=== PATIENT | male | born 1970 | race Caucasian/White ===

== ENCOUNTER 2016-03-28 09:31 | Outpatient (CLI) | payer OTHER ==
[2016-03-28] MEDS ORDERED: BARIUM SULFATE 135 ML BOTTLE PO ONE (09:59)
== END 2016-03-28 09:32 | disposition home or self-care (01) ==
DX: R13.10 Dysphagia, unspecified (principal)
CPT/HCPCS: 74230; 92611; A9270

== ENCOUNTER 2016-05-24 06:50 | Outpatient (CLI) | payer OTHER, MEDICAID ==
[2016-05-24] MEDS ORDERED: IOPAMIDOL-300 100 ML VIAL IVP ONE (08:51)
[2016-05-24] MEDS ORDERED: IOPAMIDOL-300 50 ML VIAL PO ONE (08:51)
== END 2016-05-24 06:51 | disposition home or self-care (01) ==
DX: C15.9 Malignant neoplasm of esophagus, unspecified (principal); K76.9 Liver disease, unspecified
CPT/HCPCS: 71260; 74177; Q9967

== ENCOUNTER 2016-06-17 06:06 | Day surgery (SDC) | payer MEDICAID ==
[2016-06-17] MEDS ORDERED: ceFAZolin 2 GM/50 ML 50 ML IV ONE (06:35)
[2016-06-17] MEDS ORDERED: LACTATED RINGERS 1,000 ML IV ONE ×3 (07:00→08:04)
[2016-06-17] MEDS ORDERED: FAMOTIDINE 20 MG/50 ML 50 ML IV ONE (07:20)
[2016-06-17] MEDS ORDERED: ONDANSETRON 4 MG/2 ML VIAL IVP ONE (07:30)
[2016-06-17] MEDS ORDERED: DEXAMETHASONE 4 MG/ML VIAL IVP ONE (07:30)
[2016-06-17] MEDS ORDERED: fentaNYL 100 MCG/2 ML VIAL IVP ONE (07:30)
[2016-06-17] MEDS ORDERED: LIDOCAINE-MPF 2% 5 ML VIAL IM ONE (07:30)
[2016-06-17] MEDS ORDERED: MIDAZOLAM 2 MG/2 ML VIAL IVP ONE (07:30)
[2016-06-17] MEDS ORDERED: PROPOFOL 200 MG/20 ML VIAL IVP ONE (07:30)
[2016-06-17] MEDS ORDERED: BUPIVACAINE 0.5% PF 30 ML VIAL INFIL ONE (08:30)
== END 2016-06-17 06:07 | disposition home or self-care (01) ==
PROC: 0JH63XZ Insertion of Tunneled Vascular Access Device into Chest Subcutaneous Tissue and Fascia, Percutaneous Approach (ICD-10-PCS; principal; 2016-06-17 07:30)
DX: C15.5 Malignant neoplasm of lower third of esophagus (principal); Z87.891 Personal history of nicotine dependence; Z88.0 Allergy status to penicillin; Z83.3 Family history of diabetes mellitus
CPT/HCPCS: 36561; 71010; C1788; J0690; J7120

== ENCOUNTER 2016-06-24 10:44 | Outpatient (CLI) | payer MEDICAID ==
--- NOTE | 2016-06-27 11:55 | CONSULTATION NOTE ---
DATE OF CONSULTATION: 06/24/2016 00:00:00 REQUESTING PROVIDER: Dr. Valencia TIME OF VISIT: 1100 to 1215. Thank you, Dr. Valencia, for asking the palliative care consult service to be involved in the care of y our patient. I am asked to provide support regarding symptom management, counseling for her goals of care, and coordination of care. BRIEF HISTORY OF PRESENT ILLNESS: This is a 46-year-old gentleman who has had progressive difficulty with swallowing in the fall, and most notable at the beginning of the year with a progressing dramati c weight loss. He was 250, currently is about 180. He has had a series of scans and now diagnosed marylou vazquez esophageal cancer. Was found to have a mass at the GE junction. 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 He had a PET CT that showed uptake at the GE junction and gastric cardia with noted alyson mets 2.1 x 2.6. He was also seen to have a mas s in the segment of his right lobe measuring 3.1 x 2.2. He has had increasing difficulty with reflux, intermittent vomiting, and feeling somewhat emotionally overwhelmed with his diagnosis of stage IV d isease. He is currently getting worked up for concurrent chemoradiation. He has met with the oncologi st, but still had a few more tests. He meets with him again this Monday, as well as he has met amrylou vazquez the radiation oncologist who is anxious to get started. He continues to struggle with getting adequ ate calories. He does not have any acute pain, it is mostly reflux, some acid burning. He has had ryan e intermittent constipation and fatigue. He is currently out on FMLA, and has a complex psychosocial situation as well. PAST MEDICAL HISTORY: Includes recurrent left inguinal hernia, recently worked up. He is going to def er surgery at this point in time. Original surgery was in 1998. He has had ongoing depression with garcía icidal attempts/ideation. He is currently being followed by weekly counseling. History of alcohol mis use, binge drinking, tobacco use and severe weight loss. PAST SURGICAL HISTORY: Includes on 06/17/2016 he had a port placement. He has also recently had a vas ectomy. ALLERGIES: PENICILLIN. MEDICATIONS: Currently not taking any medications though has taken large number of Tums as well as Ph illips' milk of mag. CODE STATUS: CURRENTLY FULL CODE. BRIEF SOCIAL HISTORY: The patient is currently in the midst of a very complicated . He is not currently connected to his . He does have a girlfriend "Lidia" who is currently living with him. George edwards does have an older daughter who has had infrequent contact with him, and also a 4-year-old son who he does see on a regular basis. He was working as a howard, is currently able to be on FMLA but lakshmi dotson is stressed financially and is working on getting on Social Security disability. Currently had t o buy his own healthcare insurance as his dropped him from her insurance. He is quite financiall y stressed. Marital status: Currently , going through a divorce. Use of alcohol/tobacco: Sti ll smoking, though plans to give it up. Has not currently been drinking, but does have a history of b marily drinking. Does not perceive himself as an alcoholic, but has seen it as problematic in the past. FAMILY HISTORY: There is quite a bit of family history of alcohol, smoking and addictive behaviors. George is mom is currently alive and well at 71, but she is still using. He has a sister who is of good supp ort. She also has a stepmother and stepfather who are providing good support. Patients maternal grand mother had breast cancer, and great grandmother had colon cancer. PERFORMANCE STATUS: Patient with weight loss. Has been having increased fatigue. He is trying to stay active. He is able to attend to his own ADLs. He is still driving. REVIEW OF SYSTEMS ENT: Denies trouble with swallowing though does feel that things get caught and often can get overwhe lmed and vomit, particularly large amounts of water. CARDIOVASCULAR: Reports GERD symptoms, but no chest pain. [place]. RESPIRATORY: Denies shortness of breath at rest. GASTROINTESTINAL: Has had intermittent hard stools and constipation and straining. He has early satie ty and poor appetite. GENITOURINARY: He is voiding without difficulties. MUSCULOSKELETAL: He is quite fatigued. INTEGUMENTARY: No pruritus. NEUROLOGIC: Generalized weakness. PSYCHIATRIC: He has a history of depression, history of suicidal ideation. Denies suicidal ideation a t the time of our visit. See palliative care discussion. Is quite anxious. ENDOCRINE: No history of diabetes or thyroid problems. HEMATOLOGIC/IMMUNOLOGIC: No recent infections. PHYSICAL EXAMINATION GENERAL APPEARANCE: He does appear slightly thin. He is 6 feet 3 inches, 180 pounds. Some temporal wa sting. He does make good eye contact. Voice is modulated. Seems somewhat anxious. EYES: Without icter us. ENT: His mucous membranes are moist. NECK: No lymphadenopathy. RESPIRATORY: His breath sounds are clear. CARDIOVASCULAR: Blood pressure is low at 92/60, pulse 76. ABDOMEN: Flat. SKIN: Color is somewhat sallow. EXTREMITIES: Able to move all extremities. No noted changes in his gait. PALLIATIVE CARE DISCUSSION: Who is present, myself and the patient. He is working on getting his dura ble power of medical flour blender assigned. He does have the form. At this point in time, we had a conver sation about whether to visit advanced directives. The patient is feeling quite anxious currently. Lizzy henry discuss about what they were, what the intent was around guidelines, how to talk to particularly hi s durable power of flour blender who he is going to make as Lidia, what kinds of decisions might need to be made in the future. He agreed to revisit this in the future. He does understand he does have a termin al illness, is hoping for quantity as well as quality, and is willing to give it his all currently fo r treatment. In the context of this, though, he also has a life insurance policy that if he were term inal he could start drawing from. I did ask him to go back and define the definition of terminal, if it was 6 months or less, or if it was just stage IV disease because surely any of his providers at th is point in time could write a letter supporting that. He does understand the seriousness of his illn ess, that the treatment is going to be palliative in nature. He also is remaining quite hopeful, was asking about a second opinion and this is certainly a possibility in the context of getting more info rmation. We did review places to obtain helpful information, the NCCN guidelines have a patient pamph let. I did pull this up and show him, it is good information that defines terms and talks about the d ifferent treatment. He felt this would be helpful. Also steered him to [email or web address] for online supp ort group as well as [email or web address] as a place for connecting with his friends and family. He is awabean delarosag a treatment plan, was told that Dr. Dang and Dr. Tovar needed to coordinate, and was galindo cortes to be starting some kind of intervention and treatment this Monday. His strengths come from his relationship with Lidia, he sees her as a "health cross country coach" and is quite positive as far as helping him f ocus on getting proper nutrition and calories. He has been accessing various community resources seco ndary to financial stressors, and can continue to use further assistance with this. IMPRESSION: This is a 46-year-old who has stage IV esophageal cancer about to initiate chemoradiation , already with significant weight loss and high anxiety. RECOMMENDATIONS/COUNSELING DONE 1. Protein-calorie nutrition. Did discuss the need to do small frequent feedings of easily digestible food. He is using supplements as far as protein drinks. Encouraged versus pushing water for concern for dehydration, and the need to make his fluids caloric in nature. The goal at this point in time wo uld be no further weight loss, not necessarily weight regain. Did give him [facility] [employer] [facility]. He larson s yet to meet with A[facility] for chemotherapy therapy teaching. I did show him a couple other resources george edwards might use, as well as he will be getting a side effect book. 2. Reflux. This is probably multifactorial in origin. The patient currently is using Tums. He has use d Prilosec without results. He also has some Zantac. We will go ahead and prescribe esomeprazole [address] daily. If insurance has trouble with preauth, he is instructed to start Zantac b.i.d. over the eekend. Also, provided him with ondansetron 4 mg ODT 1 tablet every 6 hours as needed for nausea, giv en he also has low-grade nausea. Currently he is not experiencing any pain. 3. Constipation. Instructed to stop MOM, and to start daily Miralax 17 gms, goal is to have a soft re gular bowel movement daily, to obtain and use Senna Conc. 8.6 mg 1-2 tabs if not effective. This will help with overall GI symptoms. 4. Anorexia. The patient is experimenting around with cannabis as far as finding balance for appetite and having some sedation with this. He certainly may be at risk and need further intervention depend ing on how he tolerates combination therapy. I discussed with him the role of tube feedings at times for patient if needed for therapy support. At this time, going to focus on maximizing calories and fl uid status. 5. Depression. The patient is at high risk for recurrent depression. It has been problematic in the p ast. Is getting weekly support from counseling. Currently not on an antidepressant but can revisit th is if needed. He had been on Cymbalta for which he did not like. 6. Advanced care planning. Did introduce the first step, which is needing a durable power of health a ttorney for medical needs. Is planning to have Lidia be this person. Discussed the need to make sure sh grace understands the implications of this and also to include her in his weighing benefits and burdens o f what kind of treatment and not treatment. We did agree to revisit advanced directives in our next c ouple of visits after he has more information available to him. Did introduce the role of the differe nt directives. Thank you, Dr. Valencia, for asking the palliative care consult service to be involved in the care of y our patient. I will continue to follow alongside and assist with symptom burden as well as counseling for goals of care and psychosocial support. TIME SPENT: Seventy-five minutes with greater than 50% of this done in counseling and coordination of care, weighing benefits and burdens of different treatment options, concern for the future, psychoso cial support and introduction regarding disease. ADDENDUM: On 06/27/2016 at 0800, did speak with Dr. Tovar. He says he has been in contact with Alfredo Dang and that his plan is to see him on Monday and will introduce his different chemotherapy options, as well as I suspect he is to be simulated or start radiation Monday for radiation as sterling steiner. Will follow up with the patient of the current plan. JOB #: [id number] EXT JOB #:[id number]
== END 2016-06-24 10:45 | disposition home or self-care (01) ==
LOC: PC 10:44
PROVIDERS: ATTEND Nurse Practitioner Adult Health
DX: Z51.5 Encounter for palliative care (principal); C15.9 Malignant neoplasm of esophagus, unspecified; E46 Unspecified protein-calorie malnutrition; K21.9 Gastro-esophageal reflux disease without esophagitis; K59.00 Constipation, unspecified; R63.0 Anorexia; F32.9 Major depressive disorder, single episode, unspecified; R11.10 Vomiting, unspecified; F17.200 Nicotine dependence, unspecified, uncomplicated; Z95.828 Presence of other vascular implants and grafts; R68.81 Early satiety; R53.1 Weakness; F41.9 Anxiety disorder, unspecified
CPT/HCPCS: 99205

== ENCOUNTER 2016-07-30 13:18 | Emergency (ER) | payer MEDICAID ==
[2016-07-30] MEDS ORDERED: SODIUM CHLORIDE 0.9% 1,000 ML IV ONE ×2 (13:37)
--- NOTE | 2016-07-30 13:49 | ED Physician Documentation ---
History of Present Illness - Stated complaint Stated Complaint: FEELING POOR - Chief complaint Chief Complaint: General - History obtained from History obtained from: Patient - History of Present Illness Timing: How many days ago (3) Pain level max: 0 Pain level now: 0 Improved by: Remaining still Worsened by: Standing up - Additonal information Additional information: Patient is a 46-year-old gentleman who has a history of stage IV esophageal cancer. He is currently undergoing radiation, his last radiation was yesterday. He is also undergoing chemotherapy. He has his chemotherapy in [place] where he sees oncology. Has been feeling weaker over the past 3 days. Decreased appetite. Stood up today and felt lightheaded and near syncopal. Review of Systems Constitutional: denies: Fever, Chills Throat: denies: Sore throat Cardiac: denies: Chest pain / pressure Respiratory: denies: Cough GI: denies: Nausea, Vomiting, Diarrhea, Hematemesis, Bloody / black stool Skin: denies: Rash Musculoskeletal: denies: Neck pain, Back pain Neurologic: denies: Headache PD PAST MEDICAL HISTORY - Past Medical History Past Medical History: Yes Cardiovascular: None Respiratory: None Neuro: None Endocrine/Autoimmune: None GI: Ulcers, Hiatal hernia : None HEENT: None Psych: Depression, Anxiety Musculoskeletal: None Derm: None Other Past Medical History: Esophageal CA - Past Surgical History General: Hiatal hernia repair - Present Medications Home Medications: Ambulatory Orders Medication Instructions Recorded Confirmed raNITIdine [Zantac] 150 mg PO BID 06/29/16 06/29/16 Carboplatin 0 mg INJ TITR 07/30/16 07/30/16 HYDROcod/ACETAM 5/325 [Egnar 5/325] 0 mg PO PRN PRN 07/30/16 07/30/16 Ondansetron Odt [Zofran Odt] 4 mg PO PRN PRN 07/30/16 07/30/16 Paxitol 0 mg PO DAILY 07/30/16 07/30/16 guaiFENesin [Mucinex] 0 mg PO DAILY 07/30/16 07/30/16 - Allergies Allergies/Adverse Reactions: Allergies Allergy/AdvReac Type Severity Reaction Status Date / Time Penicillins Allergy Severe Respiratory Verified 07/30/16 13:27 - Social History Does the pt smoke?: No Smoking Status: Never smoker Does the pt drink ETOH?: No Does the pt have substance abuse?: No - Immunizations Immunizations are current?: Yes PD ED PE NORMAL - Vitals Vital signs reviewed: Yes - General General: Alert and oriented X 3, No acute distress - HEENT HEENT: Moist mucous membranes - Neck Neck: Supple, no meningeal sign - Cardiac Cardiac: RRR - Respiratory Respiratory: No respiratory distress, Clear bilaterally - Abdomen Abdomen: Soft, Non tender - Derm Derm: Warm and dry, No rash - Neuro Neuro: Alert and oriented X 3 - Psych Psych: Normal mood, Normal affect Results - Vitals Vitals: Vital Signs - 24 hr 07/30/16 07/30/16 13:24 14:59 Temperature 36.7 C Heart Rate 82 80 Respiratory 16 18 Rate Blood Pressure 123/82 H 126/65 O2 Saturation 99 99 Oxygen O2 Source Room air - Labs Labs: Laboratory Tests 07/30/16 07/30/16 13:45 13:45 WBC 1.9 L* RBC 4.56 L Hgb 13.3 L Hct 39.1 L MCV 85.8 MCH 29.1 MCHC 33.9 RDW 15.1 H Plt Count 169 MPV 7.5 Neut # 1.6 Lymph # 0.1 L [place] # 0.1 Eos # 0.0 Baso # 0.0 Absolute Nucleated RBC 0.00 Nucleated RBCs 0.0 Manual Slide Review Indicated WBC Morphology NORMAL APPEARANCE Platelet Estimate NORMAL (130-450,000) Platelet Morphology 1+ LARGE PLATELETS RBC Morph Micro Appear NORMAL APPEARANCE Sodium 136 Potassium 3.8 Chloride 101 Carbon Dioxide 26 Anion Gap 9.0 BUN 15 Creatinine 0.8 Estimated GFR (MDRD) 105 Glucose 167 H Calcium 9.1 Phosphorus 3.3 Magnesium 2.0 Total Bilirubin 0.9 AST 21 ALT 21 Alkaline Phosphatase 81 Total Protein 7.1 Albumin 3.9 Globulin 3.2 Albumin/Globulin Ratio 1.2 Lipase 18 L PD MEDICAL DECISION MAKING - ED course Complexity details: reviewed results, re-evaluated patient, considered differential, d/w patient ED course: Patient appears dehydrated on laboratory testing and physical exam. He is well- appearing, nontoxic. Symptoms resolved with IV fluids. We will continue supportive care and have him follow-up with his doctor. Patient is also neutropenic, but does not have a fever. Is wearing a mask in the emergency department. Will follow up with his oncologist for this as well. Patient counseled regarding signs and symptoms for which I believe and urgent re- evaluation would be necessary. Patient with good understanding of and agreement to plan and is comfortable going home at this time This document was made in part using voice recognition software. While efforts are made to proofread this document, sound alike and grammatical errors may occur. Departure - Departure Disposition: 01 Home, Self Care Clinical Impression: Dehydration due to radiation Condition: Good Instructions: ED Dehydration Follow-Up: Belén Valencia MD [Primary Care Provider] - Within 1 week Comments: Return if you worsen. Drink plenty of fluids. Discharge Date/Time: 07/30/16 15:00
[2016-07-30 13:56] LABS: BASOPHILS % (AUTO) 1.8 %; EOSINOPHILS % (AUTO) 2.2 %; HCT - HEMATOCRIT 39.1 % (42.0-52.0); HGB - HEMOGLOBIN 13.3 g/dL (14.0-18.0); LYMPHOCYTES # (AUTO) 0.1 10^3/uL (1.5-3.5); LYMPHOCYTES % (AUTO) 5.4 %; MEAN CORPUSCULAR HEMOGLOBIN 29.1 pg (27.0-31.0); MEAN CORPUSCULAR HGB CONC 33.9 g/dL (32.0-36.0); MEAN CORPUSCULAR VOLUME 85.8 fL (80.0-94.0); MEAN PLATELET VOLUME 7.5 fL (7.4-11.4); MONOCYTES # (AUTO) 0.1 10^3/uL (0.0-1.0); MONOCYTES % (AUTO) 6.1 %; NEUTROPHILS # (AUTO) 1.6 10^3/uL (1.5-6.6); NEUTROPHILS % (AUTO) 84.5 %; RED BLOOD COUNT 4.56 10^6/uL (4.70-6.10); RED CELL DISTRIBUTION WIDTH 15.1 % (12.0-15.0); UNCORRECTED WHITE BLOOD COUNT 1.9 x10^3/uL
[2016-07-30 14:08] LABS: WHITE BLOOD COUNT 1.9 x10^3/uL (4.8-10.8)
[2016-07-30] MEDS ORDERED: FAMOTIDINE 20 MG/50 ML 50 ML IV ONE ×2 (14:29→14:31)
[2016-07-30 14:37] LABS: PLATELET ESTIMATE, MANUAL NORMAL (130-450,000) (NORMAL); PLATELET MORPHOLOGY 1+ LARGE PLATELETS (NORMAL)
[2016-07-30 14:38] LABS: WBC MORPHOLOGY (MULTIPLE) NORMAL APPEARANCE (NORMAL)
[2016-07-30 14:48] LABS: ALBUMIN/GLOBULIN RATIO 1.2 (1.0-2.2); BILIRUBIN,TOTAL 0.9 mg/dL (0.2-1.0); CALCIUM 9.1 mg/dL (8.5-10.3); CREATININE 0.8 mg/dL (0.6-1.2); PHOSPHORUS 3.3 mg/dL (2.5-4.6); POTASSIUM 3.8 mmol/L (3.5-5.0); TOTAL PROTEIN 7.1 g/dL (6.7-8.2)
[2016-07-30 15:00] VITALS: BP 126/65
== END 2016-07-30 15:00 | disposition home or self-care (01) ==
LOC: ED 13:18
DX: E86.0 Dehydration (principal); T66.XXXA Radiation sickness, unspecified, initial encounter; Y84.2 Radiological procedure and radiotherapy as the cause of abnormal reaction of the patient, or of later complication, without mention of misadventure at the time of the procedure; D70.9 Neutropenia, unspecified; C15.9 Malignant neoplasm of esophagus, unspecified
CPT/HCPCS: 36415; 80053; 83690; 83735; 84100; 85025; 96374; 99283; 99284

== ENCOUNTER 2016-08-04 14:12 | Outpatient (CLI) | payer MEDICAID ==
[2016-08-04 19:25] LABS: BASOPHILS % (AUTO) 0.9 %; EOSINOPHILS % (AUTO) 0.3 %; HCT - HEMATOCRIT 42.6 % (42.0-52.0); HGB - HEMOGLOBIN 14.2 g/dL (14.0-18.0); LYMPHOCYTES # (AUTO) 0.3 10^3/uL (1.5-3.5); LYMPHOCYTES % (AUTO) 10.1 %; MEAN CORPUSCULAR HGB CONC 33.3 g/dL (32.0-36.0); MEAN CORPUSCULAR VOLUME 86.8 fL (80.0-94.0); MONOCYTES # (AUTO) 0.7 10^3/uL (0.0-1.0); MONOCYTES % (AUTO) 24.7 %; NEUTROPHILS # (AUTO) 1.7 10^3/uL (1.5-6.6); NUCLEATED RED BLOOD CELLS AUTO 0.1 /100WBC; RED BLOOD COUNT 4.91 10^6/uL (4.70-6.10); RED CELL DISTRIBUTION WIDTH 15.4 % (12.0-15.0); UNCORRECTED WHITE BLOOD COUNT 2.7 x10^3/uL; WHITE BLOOD COUNT 2.7 x10^3/uL (4.8-10.8)
[2016-08-04 19:42] LABS: ALBUMIN/GLOBULIN RATIO 1.1 (1.0-2.2); BILIRUBIN,TOTAL 0.5 mg/dL (0.2-1.0); CALCIUM 9.2 mg/dL (8.5-10.3); CREATININE 0.8 mg/dL (0.6-1.2); POTASSIUM 4.2 mmol/L (3.5-5.0); TOTAL PROTEIN 7.4 g/dL (6.7-8.2)
[2016-08-04 19:52] LABS: PLATELET ESTIMATE, MANUAL NORMAL (130-450,000) (NORMAL); PLATELET MORPHOLOGY NORMAL APPEARANCE (NORMAL)
[2016-08-04 20:00] LABS: TROPONIN I < 0.04 ng/mL (<0.49)
== END 2016-08-04 14:13 | disposition home or self-care (01) ==
LOC: LAB.WCP 14:12
PROVIDERS: ATTEND Family Medicine
DX: R00.0 Tachycardia, unspecified (principal)
CPT/HCPCS: 36415; 80053; 82553; 84443; 84484; 85025

== ENCOUNTER 2016-11-11 07:19 | Outpatient (CLI) | payer MEDICAID ==
[2016-11-11 19:42] LABS: THYROID STIMULATING HORMONE 0.5 uIU/mL (0.34-5.60)
== END 2016-11-11 07:20 | disposition home or self-care (01) ==
LOC: LAB.WCP 07:19
PROVIDERS: ATTEND Family Medicine
DX: R94.6 Abnormal results of thyroid function studies (principal); F41.9 Anxiety disorder, unspecified; R00.0 Tachycardia, unspecified
CPT/HCPCS: 36415; 84439; 84443; 84481